=== PATIENT | male | born 1995 | race Caucasian/White ===

== ENCOUNTER 2018-07-13 03:58 | Emergency (ER) | payer BC, OTHER ==
[2018-07-13] MEDS ORDERED: Tdap Vaccine 0.5 ml Vial (10-64 yrs) IM ONE ×2 (04:39→05:12)
[2018-07-13] MEDS ORDERED: Lidocaine 2% w Epi 1:100,000 Inj IJ ONE ×2 (04:41→05:12)
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
[2018-07-13 06:44] VITALS: BP 106/63; PULSE 57; RESP 14; TEMP 97.3
--- NOTE | 2018-07-13 09:35 | CT ---
Date of service: 07/13/2018 PROCEDURE: CT MAXILLOFACIAL BONES WITHOUT CONTRAST HISTORY: facial injury COMPARISON: None available. TECHNIQUE: Contiguous axial CT images of the maxillofacial bones were obtained. Coronal and sagittal reformats were generated. Radiation dose: Total exam DLP = 1599.6 mGy-cm. This CT exam was performed using one or more of the following dose reduction techniques: Automated exposure control, adjustment of the mA and/or kV according to patient size, and/or use of iterative reconstruction technique. FINDINGS: NASAL BONES: Unremarkable. ORBITS: Unremarkable. PARANASAL SINUSES/ MASTOIDS: Left frontal sinusitis. MAXILLA: Unremarkable. MANDIBLE/ TEMPOROMANDIBULAR JOINTS: Unremarkable. SKULL BASE: Unremarkable. TEMPORAL BONES: Middle ears and mastoid grossly unremarkable. OTHER FINDINGS: Left frontal scalp edema/hematoma with dermal irregular margins suspicious for laceration superficially. No retained radiodense foreign body appreciated or emphysematous soft tissue changes present. IMPRESSION: Mild left frontal scalp hematoma/edema and left frontal sinusitis is identified, potentially posttraumatic. Small laceration questionably identified at superficial portion of left frontal scalp edema. Maxillofacial CT without contrast is otherwise unremarkable. No fracture identified. Concordant preliminary report from [facility], 07/13/2018, 6:10 a.m..
--- NOTE | 2018-07-13 09:40 | CT ---
Date of service: 07/13/2018 PROCEDURE: CT HEAD WITHOUT CONTRAST. HISTORY: head injury/etoh COMPARISON: None available. TECHNIQUE: Axial computed tomography images were obtained through the head/brain without intravenous contrast. Radiation dose: Total exam DLP = 1599.60 mGy-cm. This CT exam was performed using one or more of the following dose reduction techniques: Automated exposure control, adjustment of the mA and/or kV according to patient size, and/or use of iterative reconstruction technique. FINDINGS: HEMORRHAGE: No intracranial hemorrhage. BRAIN: Normal diaz-white matter differentiation and density are appreciated throughout the cerebrum and cerebellum with the brainstem appearing unremarkable as well. There is no mass effect. There is no suspicious extra-axial fluid collection and the midline brain anatomy appears diffusely unremarkable. VENTRICLES: Unremarkable. No hydrocephalus. CALVARIUM: No destructive bony lesion or displaced fracture identified including through the skullbase. Mild left frontal scalp edema/hematoma noted questionable in related laceration. PARANASAL SINUSES: Left frontal sinusitis identified, potentially posttraumatic. MASTOID AIR CELLS: Unremarkable as visualized. No inflammatory changes. OTHER FINDINGS: None. IMPRESSION: No acute intracranial findings with normal appearing brain parenchyma appreciated above and below the tentorium including the brainstem. Incidental left frontal scalp edema/hematoma and left frontal sinusitis. No fracture of the calvarium or skull base appreciable. Concordant preliminary report from [facility], 07/13/2018, 6:10 a.m..
[2018-07-14 02:18] VITALS: O2SAT 97
== END 2018-07-13 06:43 | disposition home or self-care (01) ==
LOC: H.ER 03:58
DX: S01.81XA Laceration without foreign body of other part of head, initial encounter (principal); W18.30XA Fall on same level, unspecified, initial encounter; Z23 Encounter for immunization; S09.90XA Unspecified injury of head, initial encounter

== ENCOUNTER 2018-07-17 11:24 | Emergency (ER) | payer OTHER ==
[2018-07-17 12:14] VITALS: PULSE 65; RESP 18; TEMP 98.4; O2SAT 100
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
[2018-07-17] MEDS ORDERED: Bacitracin 500 Units/gm Oint Foilpak UD TOP STA (13:13)
== END 2018-07-17 14:54 | disposition home or self-care (01) ==
LOC: H.ER 11:24
DX: Z48.02 Encounter for removal of sutures (principal)